=== PATIENT | male | born 2000 | race Caucasian/White ===

== ENCOUNTER 2018-07-11 07:21 | Emergency (ER) | payer OTHER ==
[2018-07-11] MEDS: ALBUTEROL SULFATE 2.5 MG/0.5 ML INH NEB SOLN INH (08:17)
[2018-07-11 08:51] LABS: INFLUENZA A AMPLIFICATION NEGATIVE (NEGATIVE); INFLUENZA B AMPLIFICATION NEGATIVE (NEGATIVE)
== END 2018-07-11 09:25 | disposition home or self-care (01) ==
LOC: M ED 07:21
DX: J20.9 Acute bronchitis, unspecified (principal)
CPT/HCPCS: 71046

== ENCOUNTER 2020-07-10 22:52 | Emergency (ER) | payer OTHER ==
[~2020-07-10] VITALS: Ht 185.4 cm; Wt 114.5 kg
[~2020-07-10 22:52] MED LIST: AFRI0.0511; AFRI0.058; BENZ200C70 PO; MUCI600T37 PO; VENTAER INH
[2020-07-11] MEDS ORDERED: AMOX500T PO (01:30)
[2020-07-11] MEDS ORDERED: PROV108A INH (01:30)
[2020-07-11 01:59] VITALS: BP 132/87
== END 2020-07-11 02:06 | disposition home or self-care (01) ==
LOC: M ED 22:52
DX: J20.9 Acute bronchitis, unspecified (principal); Z20.828 Contact with and (suspected) exposure to other viral communicable diseases; Z91.013 Allergy to seafood; Z79.899 Other long term (current) drug therapy
CPT/HCPCS: 99283; U0003

== ENCOUNTER 2020-11-09 18:35 | Emergency (ER) | payer OTHER ==
[~2020-11-09] VITALS: Ht 182.9 cm; Wt 122.0 kg
[~2020-11-09 18:35] MED LIST changes: +AMOX500T PO; +PROV108A INH
[2020-11-09] MEDS ORDERED: dexameTHASONE 20MG/5ML VIAL (J1100 PER 1MG) IM ONE (20:05)
[2020-11-09] MEDS ORDERED: ALBUTEROL 90 MCG/ACT 8GM HFA INHALER INH ONE (20:05)
--- NOTE | 2020-11-09 20:42 | REPVR ---
PROCEDURE INFORMATION: Exam: XR Chest Exam date and time: 11/09/2020 8:27 PM Age: 20 years old Clinical indication: Shortness of breath; Additional info: Shortness of breath wheezing TECHNIQUE: Imaging protocol: XR of the chest Views: 1 view. COMPARISON: [place] Chest, 2 view PA, Lat 07/11/2018 8:12 AM FINDINGS: Lungs: Unremarkable. No consolidation. Pleural spaces: Unremarkable. No pleural effusion. No pneumothorax. Heart/Mediastinum: Unremarkable. No cardiomegaly. Bones/joints: Unremarkable. IMPRESSION: No acute findings. Electronically signed by: Doug Saenz On 11/09/2020 20:42:04 PM
[2020-11-09 21:49] LABS: RSV AMPLIFICATION NEGATIVE (NEGATIVE)
--- NOTE | 2020-11-09 22:21 | ECGEPIP ---
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
[2020-11-09] MEDS ORDERED: PRED20TA PO ×2 (22:30→22:32)
[2020-11-09] MEDS ORDERED: IPRATROPIUM 0.5MG/ALBUTEROL 2.5MG INH SOL UD 3ML (DUONEB) NEB ONE ×2 (22:30)
[2020-11-09] MEDS ORDERED: AZIT-12 PO (22:32)
[2020-11-09 22:51] VITALS: BP 148/88
== END 2020-11-09 22:51 | disposition home or self-care (01) ==
LOC: M ED 18:35
DX: J20.9 Acute bronchitis, unspecified (principal); J45.909 Unspecified asthma, uncomplicated
CPT/HCPCS: 71045; 87631; 93005; 94640; 96372; 99284; J1100

== ENCOUNTER 2020-11-22 16:12 | Emergency (ER) | payer OTHER ==
[~2020-11-22] VITALS: Ht 182.9 cm; Wt 117.9 kg
[~2020-11-22 16:12] MED LIST changes: +AZIT-12 PO; +PRED20TA PO
[2020-11-22] MEDS ORDERED: IPRATROPIUM 0.5MG/ALBUTEROL 2.5MG INH SOL UD 3ML (DUONEB) NEB PRN (16:55)
[2020-11-22] MEDS ORDERED: FLUTICASONE PROP 0.05% NASAL SPRAY 16 GM (FLONASE) NARES STA (17:32)
[2020-11-22 18:27] VITALS: BP 134/72
[2020-11-22] MEDS ORDERED: FLUTICASONE PROP 0.05% NASAL SPRAY 16 GM (FLONASE) NARES SCH (21:00)
== END 2020-11-22 18:30 | disposition home or self-care (01) ==
LOC: M ED 16:12
DX: J98.01 Acute bronchospasm (principal); F17.220 Nicotine dependence, chewing tobacco, uncomplicated; Z91.013 Allergy to seafood

== ENCOUNTER 2020-11-23 01:36 | Emergency (ER) | payer OTHER ==
[~2020-11-23] VITALS: Ht 182.9 cm; Wt 118.1 kg
[2020-11-23 01:36] VITALS: BP 158/87
== END 2020-11-23 03:58 | disposition left against medical advice (07) ==
LOC: M ED 01:36
DX: Z53.21 Procedure and treatment not carried out due to patient leaving prior to being seen by health care provider (principal)

== ENCOUNTER → 2020-12-10 | Outpatient (CLI) | payer OTHER ==
--- NOTE | 2020-12-10 14:17 | PFTRPT ---
Height: 71.00 Inches Weight: 255.00 Lbs BSA: 2.34 Diagnosis: R06.00 DATE: 12/10/2020 ORDERING PHYSICIAN: CHANO Morales Pre and post bronchodilator studies have excellent technical quality. Forced vital capacity is normal. FEV1 is in proportion. Obstructive index is therefore normal. Expiratory limit of the flow-volume loop is normal. No significant bronchodilator response is identified. Total lung capacity is normal. Residual volume is in proportion. Diffusing capacity is normal. Hemoglobin is acceptable at 16.2. Airway resistance and conductance are normal. IMPRESSION: Normal study. MTDD
== END ==
LOC: M CARPUL 13:41
PROVIDERS: ATTEND Physician Assistant
DX: R06.00 Dyspnea, unspecified (principal)

== ENCOUNTER → 2021-01-07 | Outpatient (CLI) | payer OTHER ==
[~2021-01-07] MED LIST changes: +METHACHOLINE KIT (J7674) INH ONE
--- NOTE | 2021-01-07 10:33 | PFTRPT ---
Height: 71.00 Inches Weight: 250.00 Lbs BSA: 2.32 Diagnosis: R06.00 DATE: 01/07/2021 ORDERED BY: CHANO Morales QUALITY: Study of excellent technical quality. PROCEDURE: Under protocol, methacholine was administered. At a dose of 0.025 mg or 0.125 CDUs, a 28% decline in the FEV1 was noted. No PC calculated. Flow rates did return to baseline post bronchodilator administration. IMPRESSION: Positive methacholine challenge study. MTDD
== END ==
LOC: M CARPUL 09:33
PROVIDERS: ATTEND Physician Assistant
DX: R06.00 Dyspnea, unspecified (principal)